=== PATIENT | female | born 1990 | race Caucasian/White ===

== ENCOUNTER 2021-11-15 10:04 | Inpatient (IN) | payer OTHER ==
[2021-11-14 16:41] LABS: #Basophils 0.1 10x3/uL (0.0-0.2); #Eosinphils 0.6 10x3/uL (0.0-0.5); #Monocytes 0.7 10x3/uL (0.0-1.1); #Neutrophils 9.3 10x3/uL (1.5-8.4); %Basophils 0.5 % (0.0-2.0); %Eosinophils 4.3 % (0.0-6.0); %Lymphocytes 21.5 % (18.0-47.0); %Monocytes 5.3 % (0.0-10.0); %Neutrophils 66.9 % (40.0-75.0); Mean Corpuscular HGB CONC 33.4 g/dL (32.0-36.0); Mean Corpuscular Hemoglobin 29.5 pg (27.0-33.0); Mean Corpuscular Volume 88.2 fl (81.6-98.3); Mean Platelet Volume 9.3 fl (7.4-10.4); Platelet Count 289 10x3/uL (150-450); RBC Distribution Width 13.5 % (11.5-14.5); Red Blood Cell (RBC) Count 4.75 10x6/uL (3.90-5.03); White Blood Cell (WBC) Count 13.9 10x3/uL (3.5-10.5)
[2021-11-14 17:11] LABS: HBSAg Index 0.27 S/CO (0-0.99); Hep B Surf Ag Non-Reactive S/CO (NonReactive)
[2021-11-14 17:12] LABS: Syphilis Antibody Nonreactive (Nonreactive); Syphilis Antibody Index 0.04 S/CO (<1.00 Non-Reactive)
[2021-11-15] MEDS ORDERED: Promethazine HCl 25 MG/ML VIAL IM PRN ×2 (10:57→13:09)
[2021-11-15] MEDS ORDERED: Ondansetron PF 4 MG/2 ML Vial IVP PRN ×3 (10:57→15:35)
[2021-11-15] MEDS ORDERED: Lactated Ringer's 1,000 ML IV SCH (10:57)
[2021-11-15] MEDS ORDERED: hydrALAZINE 20 MG/ML VIAL SLOW IVP PRN ×2 (10:57→15:35)
[2021-11-15] MEDS ORDERED: Famotidine/PF 20 mg/2ml Vial SLOW IVP PRN (10:57)
[2021-11-15] MEDS ORDERED: CEFAZOLIN 2 GM in Sodium Chloride 0.9% 100 ML IVPB SCH (10:57)
[2021-11-15] MEDS ORDERED: Bicitra 30 ML UDCUP PO PRN (10:57)
[2021-11-15 10:59] VITALS: BMI 34.5
[2021-11-15] MEDS ORDERED: PHENYLEPHRINE-NS 100 MCG/ML 10 ML SYRINGE ONE (12:06)
[2021-11-15] MEDS ORDERED: Oxytocin 10 UNITS/ML VIAL ONE ×2 (12:06→12:40)
[2021-11-15] MEDS ORDERED: Phenylephrine 40 MG/NS 250 ML 250 ML ONE (12:06)
[2021-11-15] MEDS ORDERED: Morphine PF 10 MG/10 ML VIAL ONE (12:06)
[2021-11-15 12:16] LABS: SARS-CoV-2 NAA Rapid Test Not Detected (NotDetected)
[2021-11-15] MEDS ORDERED: Midazolam HCl 2 mg/2 ml Vial ONE (12:38)
[2021-11-15] MEDS ORDERED: Ketorolac Tromethamine 30 MG/ML VIAL ONE (12:43)
[2021-11-15] MEDS ORDERED: Naloxone HCl 0.4 mg/ml Vial IV PRN (13:09)
[2021-11-15] MEDS ORDERED: Ondansetron HCl/PF 4 MG/2 ML Vial IVP PRN (13:09)
[2021-11-15] MEDS ORDERED: Moisturizing Cream (Eucerin) 113 GM JAR TOP PRN (13:09)
[2021-11-15] MEDS ORDERED: Promethazine HCl 25 MG SUPP PR PRN (13:09)
[2021-11-15] MEDS ORDERED: Meperidine HCl/PF 25 MG/ML VIAL SLOW IVP PRN (13:09)
[2021-11-15] MEDS ORDERED: HYDROmorphone 2 MG/ML VIAL SLOW IVP PRN (13:09)
[2021-11-15] MEDS ORDERED: diphenhydrAMINE 50 MG/ML VIAL IVP PRN (13:09)
[2021-11-15] MEDS ORDERED: Naloxone HCl 0.4 mg/ml Vial IVP PRN ×2 (13:09)
[2021-11-15] MEDS ORDERED: Fentanyl 100 MCG/2 ML VIAL SLOW IVP PRN (13:09)
[2021-11-15] MEDS ORDERED: Communication Order-Pharmacy FS SCH (13:15)
[2021-11-15] MEDS ORDERED: Ketorolac Tromethamine 30 MG/ML VIAL IVP SCH (13:15)
[2021-11-15] MEDS ORDERED: Fentanyl 100 MCG/2 ML VIAL ONE (15:08)
[2021-11-15] MEDS ORDERED: Bisacodyl 10 MG SUPP PR PRN (15:35)
[2021-11-15] MEDS ORDERED: diphenhydrAMINE 25 MG CAP PO PRN (15:35)
[2021-11-15] MEDS ORDERED: Lanolin Ointment 7 GM TUBE TOP PRN (15:35)
[2021-11-15] MEDS ORDERED: Boostrix 0.5 ML (Tdap) VIAL (>/=7 yrs of age) IM ONE (15:35)
[2021-11-15] MEDS: Ketorolac Tromethamine 30 MG/ML VIAL IVP PRN (20:01)
[2021-11-15] MEDS: Docusate 100 MG CAP PO SCH (20:01)
[2021-11-15] MEDS: Ferrous Sulfate 325 MG TAB PO SCH (22:14)
[2021-11-16] MEDS: Ketorolac Tromethamine 30 MG/ML VIAL IVP PRN (03:49)
[2021-11-16 05:57] LABS: Hemoglobin 11.5 g/dL (12.0-15.5); Mean Corpuscular HGB CONC 34.1 g/dL (32.0-36.0); Mean Corpuscular Hemoglobin 29.9 pg (27.0-33.0); Mean Corpuscular Volume 87.8 fl (81.6-98.3); Mean Platelet Volume 9.1 fl (7.4-10.4); Platelet Count 221 10x3/uL (150-450); RBC Distribution Width 13.3 % (11.5-14.5); Red Blood Cell (RBC) Count 3.84 10x6/uL (3.90-5.03); White Blood Cell (WBC) Count 13.1 10x3/uL (3.5-10.5)
[2021-11-16] MEDS: HYDROcodone/Acetaminophen 5/325 mg Tablet PO PRN ×4 (08:38→20:30)
[2021-11-16] MEDS: Simethicone Chewable 80 MG TAB PO PRN (08:38)
[2021-11-16] MEDS: Prenatal Vitamin 1 TAB PO SCH (08:38)
[2021-11-16] MEDS: Docusate 100 MG CAP PO SCH ×2 (08:38→20:30)
[2021-11-16] MEDS: Ferrous Sulfate 325 MG TAB PO SCH (08:43)
[2021-11-16] MEDS: Ibuprofen 800 MG TAB PO SCH (20:30)
[2021-11-17] MEDS: Simethicone Chewable 80 MG TAB PO PRN ×2 (00:12→08:43)
[2021-11-17] MEDS: Ferrous Sulfate 325 MG TAB PO SCH ×2 (03:11→08:45)
[2021-11-17] MEDS: HYDROcodone/Acetaminophen 5/325 mg Tablet PO PRN ×2 (04:39→08:43)
[2021-11-17] MEDS: Ibuprofen 800 MG TAB PO SCH (04:39)
[2021-11-17] MEDS: Prenatal Vitamin 1 TAB PO SCH (08:43)
[2021-11-17] MEDS: Docusate 100 MG CAP PO SCH (08:43)
[2021-11-17 13:23] VITALS: BP 131/76; TEMP 98
== END 2021-11-17 13:15 | disposition home or self-care (01) | DRG 788 ==
LOC: CSHLD 10:04 → CSHPP 15:29
PROVIDERS: ADMIT Obstetrics & Gynecology; ATTEND Obstetrics & Gynecology
PROC: 10D00Z1 Extraction of Products of Conception, Low, Open Approach (ICD-10-PCS; principal; 2021-11-15)
DX: O34.211 Maternal care for low transverse scar from previous cesarean delivery (principal); Z3A.39 39 weeks gestation of pregnancy; Z37.0 Single live birth; O99.344 Other mental disorders complicating childbirth; F39 Unspecified mood [affective] disorder; Z79.899 Other long term (current) drug therapy
CPT/HCPCS: 36415; 51702; 85025; 85027; 86780; 86850; 86900; 86901; 87340; J1885; J2250; J2274; J2405; J2590; J3010; S0028; U0002; U0003; U0005